=== PATIENT | male | born 1955 | race Caucasian/White ===

== ENCOUNTER → 2021-01-22 | Emergency (ER) | payer OTHER, MEDICARE ==
[~2021-01-22] VITALS: Ht 172.7 cm; Wt 77.0 kg
[~2021-01-22] MED LIST: TETanus/Pertussis (Acell)/Diphther VAC/PF (Tdap-Adult) 0.5ml syringe IMVAC ONE
--- NOTE | 2021-01-22 14:31 | NUR ---
for [place] [id number] randy
[2021-01-22 17:28] VITALS: BP 165/102
== END | disposition hospice, inpatient (51) ==
LOC: ER 14:12
DX: S02.32XA Fracture of orbital floor, left side, initial encounter for closed fracture (principal); S01.112A Laceration without foreign body of left eyelid and periocular area, initial encounter; Z20.822 Contact with and (suspected) exposure to COVID-19; Z20.3 Contact with and (suspected) exposure to rabies; W01.0XXA Fall on same level from slipping, tripping and stumbling without subsequent striking against object, initial encounter; Y93.89 Activity, other specified; Y92.89 Other specified places as the place of occurrence of the external cause; Y99.8 Other external cause status
CPT/HCPCS: 70450; 70480; 72125; 87635; 90471; 90715; 99285; C9803